=== PATIENT | female | born 1975 | race Hispanic/Latino ===

== ENCOUNTER 2018-08-15 20:56 | Emergency (ER) | payer OTHER, BC ==
[~2018-08-15] VITALS: Ht 165.1 cm; Wt 102.1 kg
--- OUTSIDE RECORDS SUMMARY | 2018-08-15 20:58 | XMS REPORT | Clinical Summary ---
Author Author [facility] Organization [facility] Address Unknown Phone Unavailable Care Team Providers Care Analytical Engineer Name Role Phone Kay Rivera MD PCP Allergies No Known Allergies Medications End Date Status Medication Sig Dispensed Refills Start Date Active aspirin (ECOTRIN) 81 MG 0 enteric coated tablet 8 Active ferrous sulfate 325 (65 Take 325 mg 0 FE) MG tablet by mouth daily with breakfast. Active multivitamin with Take 1 tablet 0 minerals tablet by mouth daily. Active fluticasone propionate 0 (FLONASE) 50 9 mcg/actuation nasal spray Active traMADol (ULTRAM) 50 mg 0 tablet 9 08/06/2019 Active candesartan (ATACAND) 8 Take 1 tablet 90 tablet 0 08/06/201 MG tablet (8 mg total) 9 by mouth daily. 08/06/2019 Active cetirizine (ZyrTEC) 10 MG Take 1 tablet 90 tablet 0 tablet (10 mg total) 9 by mouth daily. Active atorvastatin (LIPITOR) 10 Take 1 tablet 90 tablet 0 08/06/201 MG tablet (10 mg total) 9 by mouth nightly. Active glimepiride (AMARYL) 1 MG Take 1 tablet 180 tablet 0 08/06/201 tablet (1 mg total) 9 by mouth 2 (two) times a day. Active metFORMIN (GLUCOPHAGE) Take 1 tablet 180 tablet 0 1,000 mg tablet (1,000 mg 9 total) by mouth 2 (two) times a day with meals. Active metoprolol tartrate Take 1 tablet 90 tablet 0 (LOPRESSOR) 50 mg tablet (50 mg total) 9 by mouth daily. Active pantoprazole (PROTONIX) Take 1 tablet 90 tablet 0 201 40 MG EC tablet (40 mg total) 9 by mouth daily. 11/13/2017 metroNIDAZOLE (FLAGYL) Take 1 tablet 0 500 MG tablet (500 mg 8 total) by mouth every 8 (eight) hours for 4 days. 12/09/2017 acetaminophen (TYLENOL) Take 2 0 325 MG tablet tablets (650 8 mg total) by mouth every 6 (six) hours as needed for mild pain or fever for up to 30 days. 12/09/2017 ondansetron ODT Take 1 tablet 0 (ZOFRAN-ODT) 4 MG (4 mg total) 8 disintegrating tablet by mouth every 8 (eight) hours as needed for nausea or vomiting for up to 30 days. 11/23/2017 cefepime (MAXIPIME) 1 Infuse 1 g 0 gram in 50 mL Mini-Bag into a venous 8 Plus catheter every 8 (eight) hours for 14 days. 12/09/2017 heparin sodium,porcine Inject 1 mL 90 mL 0 (HEPARIN, PORCINE,) 5,000 (5,000 Units 8 unit/mL injection total) under the skin every 8 (eight) hours for 30 days. 12/09/2017 ramelteon (ROZEREM) 8 mg Take 1 tablet 0 tablet (8 mg total) 8 by mouth nightly as needed for sleep for up to 30 days. 12/09/2017 insulin lispro (HumaLOG) Inject 0-12 10 mL 100 unit/mL injection Units under 8 the skin 3 (three) times a day before meals for 30 days. 12/09/2017 insulin lispro (HumaLOG) Inject 10 10 mL 12 100 unit/mL injection Units under 8 the skin 3 (three) times a day with meals for 30 days. 11/19/2017 HYDROcodone-acetaminophen Take 1 tablet 0 (NORCO) 7.5-325 mg per by mouth 8 tablet every 4 (four) hours as needed for moderate pain for up to 10 days. Max Daily Amount: 6 tablets 12/09/2017 pantoprazole (PROTONIX) Take 1 tablet 30 tablet 0 40 MG EC tablet (40 mg total) 8 by mouth daily for 30 days. 08/06/2018 Discontinued atorvastatin (LIPITOR) 10 daily. 0 02/01/201 MG tablet 8 08/06/2018 Discontinued cetirizine HCl Take by mouth 0 (CETIRIZINE ORAL) daily. 08/06/2018 Discontinued glimepiride (AMARYL) 2 MG Take 2 mg by 0 tablet mouth daily before breakfast. 08/06/2018 Discontinued pantoprazole (PROTONIX) Take 40 mg by 0 40 MG EC tablet mouth daily. 08/06/2018 Discontinued metFORMIN (GLUCOPHAGE) Take 1,000 mg 0 1,000 mg tablet by mouth 2 (two) times a day with meals. 08/06/2018 Discontinued metoprolol tartrate Take 50 mg by 0 (LOPRESSOR) 50 mg tablet mouth daily. 08/06/2018 Discontinued losartan (COZAAR) 100 MG Take 100 mg 0 tablet by mouth daily. 08/06/2018 Discontinued acetaminophen-codeine Take 1 tablet 0 (TYLENOL WITH CODEINE #4) by mouth 300-60 mg per tablet every 4 (four) hours as needed for moderate pain. 08/06/2018 Discontinued glimepiride (AMARYL) 1 MG Take 1 mg by 0 tablet mouth 2 (two) times a day. Active Problems Problem Noted Date Necrotizing fasciitis 10/31/2017 Encounters Care Team Description Date Type Specialty Kay Rivera MD Essential hypertension (Primary Dx); Mixed hyperlipidemia; Anemia, unspecified type; Diabetes mellitus type 2 in obese (HCC); Hx of BKA, left (HCC); Encounter for completion of form with patient 08/06/2018 Office Visit Internal Medicine Bekah Vences MA 02/07/2018 Abstract Orthopedic Surgery Paul Alberts Jr., MD Aftercare following surgery (Primary Dx) 02/05/2018 Office Visit Orthopedic Surgery Elizabeth Snow FNP-C 11/03/2017 Anesthesia General Surgery Event Paul Alberts Jr., MD ABOVE THE KNEE AMPUTATION, LEFT LOWER EXTREMITY 11/03/2017 Surgery General Surgery Paul Alberts Jr., MD Four Compartment Fasciotomy, Sharp Incisional Debridement Down to Bone 11/02/2017 Surgery General Surgery Reid Howe MD 11/02/2017 Anesthesia General Surgery Event Lissa Ware CRNA 11/01/2017 Anesthesia General Surgery Event Tremayne Hamilton MD Incision And Drainage Left Leg 11/01/2017 Surgery General Surgery Tremayne Hamilton MD Incision And Drainage, debridement left foot converted to below knee amputation left foot 10/31/2017 Surgery General Surgery Staci Osborne MD 10/31/2017 Anesthesia General Surgery Event Lissa Stein DO Chandiwal, Amito, MD Zaidi, Syed Farhat, MD Necrotizing fasciitis (Primary Dx); Cellulitis of left lower extremity; Sepsis, due to unspecified organism; Uncontrolled type 2 diabetes mellitus with foot ulcer, without long-term current use of insulin; Leukocytosis, unspecified type; Fever, unspecified fever cause; Anemia, unspecified type 10/30/2017 [facility] General Internal Medicine - Encounter 11/09/2017 Reid Lopez MD 10/30/2017 Emergency Emergency Medicine after 08/14/2017 Immunizations Name Dates Previously Given Next Due INFLUENZA QUAD PF 08/06/2018 Pneumococcal 11/12/2017 Polysaccharide Family History Medical History Relation Name Comments No Known Problems Brother Diabetes Father Hypertension Father Lymphoma Maternal Grandmother Diabetes Mother Hypertension Mother No Known Problems Sister Relation Name Status Comments Brother Father Maternal Grandmother Mother Sister Social History Date Tobacco Use Types Packs/Day Years Used Never Smoker Smokeless Tobacco: Never Used Alcohol Use Drinks/Week oz/Week Comments No Alcohol Habits Answer Date Recorded How often do you have a drink containing alcohol? Never 08/06/2018 How many drinks containing alcohol do you have on Not asked a typical day when you are drinking? How often do you have six or more drinks on one Not asked occasion? Sex Assigned at Date Recorded Not on file Industry Job Start Date Occupation Not on file Not on file Not on file Travel End Travel History Travel Start No recent travel history available. Last Filed Vital Signs Time Taken Vital Sign Reading 08/06/2018 2:17 PM CDT Blood Pressure 139/88 08/06/2018 2:17 PM CDT Pulse 94 11/09/2017 12:21 PM CDT Temperature 36.3 C (97.3 F) 11/09/2017 12:21 PM CDT Respiratory Rate 16 08/06/2018 2:17 PM CDT Oxygen Saturation 97% - Inhaled Oxygen - Concentration 11/04/2017 5:00 AM CDT Weight 116 kg (255 lb 11.7 oz) 08/06/2018 2:17 PM CDT Height 165.1 cm (5' 5") 11/04/2017 5:00 AM CDT Body Mass Index 42.56 Plan of Treatment Care Team Description Date Type Specialty Kay Rivera MD [address] [address] [phone] 08/22/2018 Office Visit Internal Medicine Health Maintenance Due Date Last Done Comments DIABETIC RETINAL EYE EXAM 1977 DIABETIC FOOT EXAM 09/29/1987 CERVICAL CANCER SCREENING 1998 URINE MICROALBUMIN 08/07/2019 08/06/2018 INFLUENZA VACCINE Completed 08/06/2018 Procedures Comments Procedure Name Priority Date/Time Associated Diagnosis MICROALBUMIN / CREATININE Routine 08/06/2018 Essential hypertension URINE RATIO 3:14 PM CDT Mixed hyperlipidemia Anemia, unspecified type Diabetes mellitus type 2 in obese (HCC) Hx of BKA, left (HCC) LIPID PANEL Routine 08/06/2018 Essential hypertension 3:14 PM CDT Mixed hyperlipidemia Anemia, unspecified type Diabetes mellitus type 2 in obese (HCC) Hx of BKA, left (HCC) HEMOGLOBIN A1C Routine 08/06/2018 Essential hypertension 3:14 PM CDT Mixed hyperlipidemia Anemia, unspecified type Diabetes mellitus type 2 in obese (HCC) Hx of BKA, left (HCC) COMPREHENSIVE METABOLIC Routine 08/06/2018 Essential hypertension PANEL 3:14 PM CDT Mixed hyperlipidemia Anemia, unspecified type Diabetes mellitus type 2 in obese (HCC) Hx of BKA, left (HCC) CBC WITH PLATELET AND Routine 08/06/2018 Essential hypertension DIFFERENTIAL 3:14 PM CDT Mixed hyperlipidemia Anemia, unspecified type Diabetes mellitus type 2 in obese (HCC) Hx of BKA, left (HCC) TRANSFUSE RED BLOOD CELLS Routine 01/17/2018 5:55 PM CDT TRANSFUSE RED BLOOD CELLS Routine 01/17/2018 5:55 PM CDT POC GLUCOSE Routine 11/09/2017 11:06 AM CDT POC GLUCOSE Routine 11/09/2017 7:34 AM CDT HC COMPLETE BLD COUNT Routine 11/09/2017 W/AUTO DIFF 4:20 AM CDT POC GLUCOSE Routine 11/08/2017 8:25 PM CDT POC GLUCOSE Routine 11/08/2017 4:35 PM CDT POC GLUCOSE Routine 11/08/2017 11:40 AM CDT POC GLUCOSE Routine 11/08/2017 7:18 AM CDT POC GLUCOSE Routine 11/07/2017 8:47 PM CDT HC CATH DUAL LUMEN PICC Routine 11/07/2017 5:00 PM CDT HC US GUIDED VASCULAR Routine 11/07/2017 ACCESS 5:00 PM CDT HC CVL PICC INSERT 5 YRS Routine 11/07/2017 OR > W/O IMG GUID 5:00 PM CDT POC GLUCOSE Routine 11/07/2017 3:40 PM CDT POC GLUCOSE Routine 11/07/2017 11:43 AM CDT POC GLUCOSE Routine 11/07/2017 7:33 AM CDT ZZESTIMATED GFR Routine 11/07/2017 6:45 AM CDT COMPREHENSIVE METABOLIC Routine 11/07/2017 PANEL 6:45 AM CDT HC COMPLETE BLD COUNT Routine 11/07/2017 W/AUTO DIFF 6:45 AM CDT POC GLUCOSE Routine 11/06/2017 8:20 PM CDT POC GLUCOSE Routine 11/06/2017 4:58 PM CDT POC GLUCOSE Routine 11/06/2017 12:03 PM CDT POC GLUCOSE Routine 11/06/2017 8:06 AM CDT POC GLUCOSE Routine 11/05/2017 9:26 PM CDT POC GLUCOSE Routine 11/05/2017 5:56 PM CDT POC GLUCOSE Routine 11/05/2017 12:35 PM CDT POC GLUCOSE Routine 11/05/2017 8:16 AM CDT MAGNESIUM LEVEL Routine 11/05/2017 6:10 AM CDT ZZESTIMATED GFR Routine 11/05/2017 6:10 AM CDT BASIC METABOLIC PANEL Routine 11/05/2017 6:10 AM CDT HC COMPLETE BLD COUNT Routine 11/05/2017 W/AUTO DIFF 6:10 AM CDT POC GLUCOSE Routine 11/05/2017 12:57 AM CDT POC GLUCOSE Routine 11/04/2017 9:02 PM CDT POC GLUCOSE Routine 11/04/2017 6:14 PM CDT POC GLUCOSE Routine 11/04/2017 4:01 PM CDT POC GLUCOSE Routine 11/04/2017 11:28 AM CDT POC GLUCOSE Routine 11/04/2017 7:39 AM CDT POC GLUCOSE Routine 11/04/2017 6:31 AM CDT ZZESTIMATED GFR Routine 11/04/2017 3:00 AM CDT IONIZED CALCIUM Routine 11/04/2017 3:00 AM CDT PHOSPHORUS LEVEL Routine 11/04/2017 3:00 AM CDT BASIC METABOLIC PANEL Routine 11/04/2017 3:00 AM CDT CBC WITH PLATELET AND Routine 11/04/2017 DIFFERENTIAL 3:00 AM CDT MAGNESIUM LEVEL Routine 11/04/2017 3:00 AM CDT POC GLUCOSE Routine 11/03/2017 9:34 PM CDT POC GLUCOSE Routine 11/03/2017 4:31 PM CDT TRANSFUSE RED BLOOD CELLS Routine 11/03/2017 3:26 PM CDT SURGICAL PATHOLOGY Routine 11/03/2017 REQUEST 3:01 PM CDT TRANSFUSE RED BLOOD CELLS Routine 11/03/2017 2:42 PM CDT POC GLUCOSE Routine 11/03/2017 11:04 AM CDT ANESTHESIA PERIPHERAL Routine 11/03/2017 BLOCK 7:51 AM CDT POC GLUCOSE Routine 11/03/2017 7:50 AM CDT XR CHEST 1 VW PORTABLE Routine 11/03/2017 6:32 AM CDT POC GLUCOSE Routine 11/03/2017 6:13 AM CDT MANUAL DIFFERENTIAL Routine 11/03/2017 3:30 AM CDT ZZESTIMATED GFR Routine 11/03/2017 3:30 AM CDT IONIZED CALCIUM Routine 11/03/2017 3:30 AM CDT PHOSPHORUS LEVEL Routine 11/03/2017 3:30 AM CDT MAGNESIUM LEVEL Routine 11/03/2017 3:30 AM CDT CBC WITH PLATELET AND Routine 11/03/2017 DIFFERENTIAL 3:30 AM CDT BASIC METABOLIC PANEL Routine 11/03/2017 3:30 AM CDT POC GLUCOSE Routine 11/03/2017 2:22 AM CDT POC GLUCOSE Routine 11/03/2017 12:06 AM CDT POC GLUCOSE Routine 11/02/2017 10:56 PM CDT POC GLUCOSE Routine 11/02/2017 8:05 PM CDT POC GLUCOSE Routine 11/02/2017 6:45 PM CDT POC GLUCOSE Routine 11/02/2017 4:09 PM CDT POC GLUCOSE Routine 11/02/2017 2:40 PM CDT POC GLUCOSE Routine 11/02/2017 12:03 PM CDT URINALYSIS, AUTOMATED Routine 11/02/2017 WITH MICROSCOPY 11:26 AM CDT BETA HYDROXYBUTYRATE Routine 11/02/2017 11:26 AM CDT MANUAL DIFFERENTIAL STAT 11/02/2017 9:37 AM CDT ZZESTIMATED GFR STAT 11/02/2017 9:37 AM CDT PROTHROMBIN TIME WITH INR STAT 11/02/2017 9:37 AM CDT IONIZED CALCIUM STAT 11/02/2017 9:37 AM CDT PHOSPHORUS LEVEL STAT 11/02/2017 9:37 AM CDT MAGNESIUM LEVEL STAT 11/02/2017 9:37 AM CDT CBC WITH PLATELET AND STAT 11/02/2017 DIFFERENTIAL 9:37 AM CDT BASIC METABOLIC PANEL STAT 11/02/2017 9:37 AM CDT LACTIC ACID LEVEL STAT 11/02/2017 9:37 AM CDT POC GLUCOSE Routine 11/02/2017 8:49 AM CDT NH AN ELECTIVE Routine 11/02/2017 ENDOTRACHEAL AIRWAY 7:21 AM CDT Procedure Note - Reid Howe MD - 11/02/2017 7:21 AM CDT Airway Date/Time: 11/02/2017 7:21 AM Performed by: REID HOWE Authorized by: YANETH, REID JOEY Location: [place] Urgency: Elective Performed by: anesthesio logist Preoxygena lester with 100% O2: Yes C-spine Precaution s Maintained Throughout : Yes Mask Ventilatio n: Easy mask Final Airway Type: Endotrache al airway Final Endotrache al Airway: ETT Cuffed: Yes Technique Used: Direct laryngosco py Insertion Site: Oral Blade Type: Jimenez Laryngosco pe Blade/Vide olaryngosc ope Blade Size: 2 ETT Size (mm): 7.0 Cuff at minimum occlusion pressure: Yes Measured from: Lips ETT to Lips (cm): 22 Placement Verified by: CO2 detection, direct visualizat ion and equal breath sounds Laryngosco pic view: Grade I - full view of glottis Rapid Sequence Induction (RSI): Yes Number of Attempts at Approach: 1 XR CHEST 1 VW PORTABLE Routine 11/02/2017 6:41 AM CDT POC GLUCOSE Routine 11/02/2017 4:02 AM CDT MANUAL DIFFERENTIAL Routine 11/02/2017 3:30 AM CDT ZZESTIMATED GFR Routine 11/02/2017 3:30 AM CDT PROTHROMBIN TIME WITH INR Routine 11/02/2017 3:30 AM CDT IONIZED CALCIUM Routine 11/02/2017 3:30 AM CDT PHOSPHORUS LEVEL Routine 11/02/2017 3:30 AM CDT MAGNESIUM LEVEL Routine 11/02/2017 3:30 AM CDT BASIC METABOLIC PANEL Routine 11/02/2017 3:30 AM CDT CBC WITH PLATELET AND Routine 11/02/2017 DIFFERENTIAL 3:30 AM CDT POC GLUCOSE Routine 11/02/2017 1:54 AM CDT POC GLUCOSE Routine 11/01/2017 11:58 PM CDT POC GLUCOSE Routine 11/01/2017 10:03 PM CDT POC GLUCOSE Routine 11/01/2017 8:03 PM CDT TRANSFUSE FRESH FROZEN Routine 11/01/2017 PLASMA 6:39 PM CDT TRANSFUSE RED BLOOD CELLS STAT 11/01/2017 6:38 PM CDT POC GLUCOSE Routine 11/01/2017 6:04 PM CDT POC GLUCOSE Routine 11/01/2017 4:01 PM CDT MANUAL DIFFERENTIAL Routine 11/01/2017 4:01 PM CDT ZZESTIMATED GFR Routine 11/01/2017 4:01 PM CDT CBC WITH PLATELET AND Routine 11/01/2017 DIFFERENTIAL 4:01 PM CDT BASIC METABOLIC PANEL Routine 11/01/2017 4:01 PM CDT POC GLUCOSE Routine 11/01/2017 3:27 PM CDT NH AN ELECTIVE Routine 11/01/2017 ENDOTRACHEAL AIRWAY 2:13 PM CDT Procedure Note - Lissa Ware, [employer]PER[employer] - 11/01/2017 2:13 PM CDT Airway Performed by: LISSA WARE Authorized by: DAVE HYDE Location: OR Urgency: Elective Difficult Airway: No Anesthesio logist: DAVE HYDE Resident/C RNA/AA: LISSA WARE Performed by: resident/C RNA Preoxygena lester with 100% O2: Yes C-spine Precaution s Maintained Throughout : Yes Mask Ventilatio n: Not attempted Final Airway Type: Endotrache al airway Final Endotrache al Airway: ETT Cuffed: Yes Technique Used: Direct laryngosco py Devices/Me thods Used in Placement: Intubatin g stylet Insertion Site: Oral Blade Type: Jimenez Laryngosco pe Blade/Vide olaryngosc ope Blade Size: 2 ETT Size (mm): 7.5 Cuff at minimum occlusion pressure: Yes Measured from: Teeth ETT to Teeth (cm): 21 Placement Verified by: CO2 detection, direct visualizat ion and equal breath sounds Laryngosco pic view: Grade I - full view of glottis Rapid Sequence Induction (RSI): No Modified RSI: Yes Number of Attempts at Approach: 1 Atraumati c, lips/teeth in preop condition TRANSFUSE FRESH FROZEN Routine 11/01/2017 PLASMA 12:56 PM CDT TRANSFUSE RED BLOOD CELLS Routine 11/01/2017 12:29 PM CDT POC GLUCOSE Routine 11/01/2017 12:06 PM CDT TRANSFUSE RED BLOOD CELLS Routine 11/01/2017 11:07 AM CDT VANCOMYCIN LEVEL, TROUGH Timed 11/01/2017 10:50 AM CDT POC GLUCOSE Routine 11/01/2017 10:16 AM CDT LACTIC ACID LEVEL, SEPSIS Timed 11/01/2017 - NOW AND REPEAT 2X EVERY 10:05 AM CDT 3 HOURS POC GLUCOSE Routine 11/01/2017 7:58 AM CDT XR CHEST 1 VW PORTABLE Routine 11/01/2017 6:13 AM CDT POC GLUCOSE Routine 11/01/2017 6:03 AM CDT MANUAL DIFFERENTIAL Routine 11/01/2017 3:58 AM CDT ZZESTIMATED GFR Routine 11/01/2017 3:58 AM CDT PROTHROMBIN TIME WITH INR Routine 11/01/2017 3:58 AM CDT IONIZED CALCIUM Routine 11/01/2017 3:58 AM CDT PHOSPHORUS LEVEL Routine 11/01/2017 3:58 AM CDT MAGNESIUM LEVEL Routine 11/01/2017 3:58 AM CDT BASIC METABOLIC PANEL Routine 11/01/2017 3:58 AM CDT CBC WITH PLATELET AND Routine 11/01/2017 DIFFERENTIAL 3:58 AM CDT POC GLUCOSE Routine 11/01/2017 2:22 AM CDT POC GLUCOSE Routine 11/01/2017 12:15 AM CDT POC GLUCOSE Routine 10/31/2017 9:50 PM CDT POC GLUCOSE Routine 10/31/2017 8:04 PM CDT POC GLUCOSE Routine 10/31/2017 6:12 PM CDT POC GLUCOSE Routine 10/31/2017 4:19 PM CDT POC GLUCOSE Routine 10/31/2017 1:56 PM CDT POC GLUCOSE Routine 10/31/2017 12:37 PM CDT POC GLUCOSE Routine 10/31/2017 11:33 AM CDT ZZESTIMATED GFR Timed 10/31/2017 10:30 AM CDT BASIC METABOLIC PANEL Timed 10/31/2017 10:30 AM CDT POC GLUCOSE Routine 10/31/2017 10:29 AM CDT MANUAL DIFFERENTIAL Timed 10/31/2017 10:18 AM CDT CBC WITH PLATELET AND Timed 10/31/2017 DIFFERENTIAL 10:18 AM CDT POC GLUCOSE Routine 10/31/2017 9:26 AM CDT POC GLUCOSE Routine 10/31/2017 8:24 AM CDT POC GLUCOSE Routine 10/31/2017 7:23 AM CDT XR CHEST 1 VW PORTABLE Routine 10/31/2017 6:59 AM CDT LACTIC ACID LEVEL, SEPSIS Timed 10/31/2017 - NOW AND REPEAT 2X EVERY 6:28 AM CDT 3 HOURS MANUAL DIFFERENTIAL Timed 10/31/2017 6:15 AM CDT ZZESTIMATED GFR Timed 10/31/2017 6:15 AM CDT COMPREHENSIVE METABOLIC Timed 10/31/2017 PANEL 6:15 AM CDT TROPONIN Timed 10/31/2017 6:15 AM CDT PROTHROMBIN TIME WITH INR Timed 10/31/2017 6:15 AM CDT IONIZED CALCIUM Timed 10/31/2017 6:15 AM CDT PHOSPHORUS LEVEL Timed 10/31/2017 6:15 AM CDT MAGNESIUM LEVEL Timed 10/31/2017 6:15 AM CDT CBC WITH PLATELET AND Timed 10/31/2017 DIFFERENTIAL 6:15 AM CDT POC GLUCOSE Routine 10/31/2017 5:54 AM CDT POC GLUCOSE Routine 10/31/2017 4:36 AM CDT URINALYSIS SCREEN AND Routine 10/31/2017 MICROSCOPY, WITH REFLEX 3:55 AM CDT TO CULTURE GRAM STAIN Routine 10/31/2017 3:55 AM CDT URINE CULTURE Routine 10/31/2017 3:55 AM CDT LACTIC ACID LEVEL Routine 10/31/2017 3:50 AM CDT TRANSFUSE RED BLOOD CELLS STAT 10/31/2017 2:30 AM CDT SURGICAL PATHOLOGY Routine 10/31/2017 REQUEST 2:25 AM CDT GRAM STAIN Routine 10/31/2017 2:00 AM CDT ANAEROBIC CULTURE Routine 10/31/2017 2:00 AM CDT AEROBIC CULTURE Routine 10/31/2017 2:00 AM CDT NH AN ELECTIVE Routine 10/31/2017 ENDOTRACHEAL AIRWAY 1:40 AM CDT Procedure Note - Staci Osborne MD - 10/31/2017 1:40 AM CDT Airway Performed by: STACI OSBORNE Authorized by: DYLON, STACI Location: OR Urgency: Elective Difficult Airway: No Resident/C RNA/AA: SARAVANAN MISTRY Performed by: resident/C RNA/AA Preoxygena lester with 100% O2: Yes C-spine Precaution s Maintained Throughout : Yes Mask Ventilatio n: Not attempted Final Airway Type: Endotrache al airway Final Endotrache al Airway: ETT Technique Used: Direct laryngosco py Devices/Me thods Used in Placement: Intubatin g stylet Insertion Site: Oral Blade Type: Jimenez Laryngosco pe Blade/Vide olaryngosc ope Blade Size: 2 ETT Size (mm): 7.0 Measured from: Gums ETT to Gums (cm): 21 Placement Verified by: CO2 detection Laryngosc opic view: Grade I - full view of glottis Rapid Sequence Induction (RSI): Yes Number of Attempts at Approach: 1 ECG 12-LEAD Routine 10/31/2017 12:55 AM CDT PREPARE RBC Timed 10/31/2017 12:45 AM CDT PREPARE RBC Timed 10/31/2017 12:45 AM CDT PREPARE RBC Timed 10/31/2017 12:45 AM CDT PREPARE FRESH FROZEN Timed 10/31/2017 PLASMA 12:45 AM CDT PREPARE RBC Timed 10/31/2017 12:45 AM CDT PREPARE RBC Timed 10/31/2017 12:45 AM CDT TYPE AND SCREEN Timed 10/31/2017 12:45 AM CDT ARTERIAL BLOOD GAS STAT 10/31/2017 12:25 AM CDT XR FOOT 3+ VW LEFT STAT 10/31/2017 12:07 AM CDT XR CHEST 1 VW PORTABLE STAT 10/30/2017 11:53 PM CDT TROPONIN Timed 10/30/2017 11:42 PM CDT BLOOD SMEAR CONSULT Routine 10/30/2017 11:32 PM CDT MANUAL DIFFERENTIAL STAT 10/30/2017 11:32 PM CDT HCG QUALITATIVE, SERUM STAT 10/30/2017 SCREEN 11:32 PM CDT ZZESTIMATED GFR STAT 10/30/2017 11:32 PM CDT PROTHROMBIN TIME WITH INR STAT 10/30/2017 11:32 PM CDT COMPREHENSIVE METABOLIC STAT 10/30/2017 PANEL 11:32 PM CDT CBC WITH PLATELET AND STAT 10/30/2017 DIFFERENTIAL 11:32 PM CDT LACTIC ACID LEVEL, SEPSIS STAT 10/30/2017 - NOW AND REPEAT 2X EVERY 11:32 PM CDT 3 HOURS ECG ED PRELIMINARY Routine 10/30/2017 INTERPRETATION 11:31 PM CDT CONSULT TO SEPSIS Routine 10/30/2017 RESPONSE TEAM 11:31 PM CDT NH CRITICAL CARE, ADDL 30 Routine 10/30/2017 MIN 11:31 PM CDT NH CRITICAL CARE, E/M Routine 10/30/2017 30-74 MINUTES 11:31 PM CDT BETA HYDROXYBUTYRATE Routine 10/30/2017 11:30 PM CDT HEMOGLOBIN A1C Routine 10/30/2017 11:30 PM CDT BLOOD CULTURE, AEROBIC & Routine 10/30/2017 ANAEROBIC 11:20 PM CDT BLOOD CULTURE, AEROBIC & Routine 10/30/2017 ANAEROBIC 11:15 PM CDT POC GLUCOSE Routine 10/30/2017 10:51 PM CDT after 08/14/2017 Results * Microalbumin / creatinine urine ratio (08/06/2018 3:14 PM CDT) Creatinine, urine, random 72 20 - 275 mg/dL [facility] Microalbumin, urine 450.0 See Note: mg/dL [facility] Comment: BRADY Reference Range: Reference Range Not established Results verified by repeat analysis on dilution. Microalbumin/creatinine 6,250 (H) <30 mcg/mg creat [facility] ratio Comment: BRADY The ADA defines abnormalities in albumin excretion as follows: Category Result (mcg/mg creatinine) Normal <30 Microalbuminuria 30-299 Clinical albuminuria > UO=[id number] The ADA recommends that at least two of three specimens collected within a 3-6 month period be abnormal before considering a patient to be within a diagnostic category. Specimen Urine Resulting Agency Comment Performing Organization Information: Site ID: [id number] Name: [facility] Address: [address] [place] [phone] Director: Marisa Banks Performing Organization Address City/State/Zipcode Phone Number [employer] [place] [phone] * CBC with platelet and differential (08/06/2018 3:14 PM CDT) Only the most recent of 13 results within the time period is included. WBC 11.5 (H) 3.8 - 10.8 Thousand/uL [facility] RBC 3.91 3.80 - 5.10 Million/uL [facility] HGB 11.0 (L) 11.7 - 15.5 g/dL [facility] HCT 31.7 (L) 35.0 - 45.0 % [facility] MCV 81.1 80.0 - 100.0 fL [facility] MCH 28.1 27.0 - 33.0 pg [facility] MCHC 34.7 32.0 - 36.0 g/dL [facility] RDW 14.3 11.0 - 15.0 % [facility] Platelet count 354 140 - 400 Thousand/uL [facility] MPV 9.7 7.5 - 12.5 fL [facility] Neutrophils, absolute 6,946 1,500 - 7,800 cells/uL [facility] Lymphocytes, absolute 3,427 850 - 3,900 cells/uL [facility] Monocytes, absolute 702 200 - 950 cells/uL [facility] Eosinophils, absolute 380 15 - 500 cells/uL [facility] Basophils, absolute 46 0 - 200 cells/uL [facility] Neutrophils 60.4 % [facility] Lymphocytes 29.8 % [facility] Monocytes 6.1 % [facility] Eosinophils 3.3 % [facility] Basophils + RC 0.4 % [facility] Specimen Blood Resulting Agency Comment Performing Organization Information: Site ID: [id number] Name: [facility] Address: [address] [place] [phone] Director: Marisa Banks Performing Organization Address [facility] Cent[facility]ode Phone Number ALYSIA EMMANUEL [address] [address] * Hemoglobin A1c (08/06/2018 3:14 PM CDT) Only the most recent of 2 results within the time period is included. Hemoglobin A1C 7.3 (H) <5.7 % of total Hgb [facility] Comment: BRADY For someone without known diabetes, a hemoglobin A1c value of 6.5% or greater indicates that they may have diabetes and this should be confirmed with a follow-up test. For someone with known diabetes, a value <7% indicates that their diabetes is well controlled and a value greater than or equal to 7% indicates suboptimal control. A1c targets should be individualized based on duration of diabetes, age, comorbid conditions, and other considerations. Currently, no consensus exists regarding use of hemoglobin A1c for diagnosis of diabetes for children. Specimen Blood Resulting Agency Comment Performing Organization Information: Site ID: [id number] Name: [facility] Address: [address] [place] [id number] Director: Marisa Banks Performing Organization Address [facility]/Zipcode Phone Number ALYSIA EMMANUEL [address] [address] * Lipid panel (08/06/2018 3:14 PM CDT) Cholesterol, total 193 <200 mg/dL [facility] HDL cholesterol 48 (L) >50 mg/dL [facility] BRADY Triglycerides 194 (H) <150 mg/dL [facility] BRADY LDL cholesterol 114 (H) mg/dL (calc) [facility] calculated Comment: BRADY Reference range: <100 Desirable range <100 mg/dL for primary prevention; <70 mg/dL for patients with CHD or diabetic patients with > or=2 CHD risk factors. LDL-C is now calculated using the Dayday calculation, which is a validated novel method providing better accuracy than the Friedewald equation in the estimation of LDL-C. Jesus UMANZOR et al. DANIELLE. 2013;310(19): 4597-2445 (http://education.Ygline.com.com/faq/KAC509) Cholesterol/HDL ratio 4.0 <5.0 (calc) [facility] Non-HDL cholesterol 145 (H) <130 mg/dL (calc) [facility] [employer] Comment: BRADY For patients with diabetes plus 1 major ASCVD risk factor, treating to a non-HDL-C goal of <100 mg/dL (LDL-C of <70 mg/dL) is considered a therapeutic option. Specimen Blood Resulting Agency Comment Performing Organization Information: Site ID: [id number] Name: [facility] Address: [address] [place] [phone] Director: Marisa Banks Performing Organization Address City/State/Zipcode Phone Number [facility] [employer] [place] [phone] * Comprehensive metabolic panel (08/06/2018 3:14 PM CDT) Only the most recent of 4 results within the time period is included. Glucose 107 (H) 65 - 99 mg/dL [facility] Comment: BRADY Fasting reference interval For someone without known diabetes, a glucose value between 100 and 125 mg/dL is consistent with prediabetes and should be confirmed with a follow-up test. BUN, whole blood 16 7 - 25 mg/dL [facility] Creatinine 0.44 (L) 0.50 - 1.10 mg/dL [facility] EGFR Non-Afr. Algerian 126 > OR=60 mL/min/1.73m2 [facility] EGFR 146 > OR=60 mL/min/1.73m2 [facility] BUN/creatinine ratio 36 (H) 6 - 22 (calc) [facility] Sodium 139 135 - 146 mmol/L [employer] [facility] Potassium 4.3 3.5 - 5.3 mmol/L [employer] [facility] Chloride 104 98 - 110 mmol/L [employer] [facility] CO2 27 20 - 32 mmol/L [facility] Calcium 9.2 8.6 - 10.2 mg/dL [facility] Protein 6.7 6.1 - 8.1 g/dL [facility] Albumin, S 3.4 (L) 3.6 - 5.1 g/dL [facility] Globulin, total 3.3 1.9 - 3.7 g/dL (calc) [facility] Albumin/globulin ratio 1.0 1.0 - 2.5 (calc) [facility] Total bilirubin 0.4 0.2 - 1.2 mg/dL [facility] Alkaline phosphatase 84 33 - 115 U/L [facility] AST 12 10 - 30 U/L [facility] ALT 15 6 - 29 U/L [facility] Specimen Blood Resulting Agency Comment Performing Organization Information: Site ID: [id number] Name: [facility] Lab Address: [address] [place] [phone] Director: Marisa Banks Performing Organization Address City/State/Zipcode Phone Number [address] [address] * Transfuse RBC (01/17/2018 5:55 PM CDT) Only the most recent of 5 results within the time period is included. * POC glucose (11/09/2017 11:06 AM CDT) Only the most recent of 67 results within the time period is included. POC glucose 269 (H) 65 - 99 mg/dL [facility] Comment: PATHOLOGY AND HMW Notified RN GENOMIC MEDICINE Meter ID: [id number] Shipbuilding Draftsperson: Abran Caputo Ricardo Performing Organization Address City/[facility]/Zipcode Phone Number [place] [address] [place] [address] PATHOLOGY AND GENOMIC MEDICINE * PICC INSERTION (11/07/2017 5:00 PM CDT) Narrative Performed At Jim Retana RN 11/07/20175:24 PM PICC insertion Date/Time: 11/07/2017 5:00 PM Performed by: JIM RETANA Authorized by: NINO MOLINA Consent: Consent obtained:Written Consent given by:Patient Risks discussed: arterial puncture, incorrect placement, nerve damage, bleeding, infection, superficial thrombus and deep vein thrombus Alternatives discussed:Alternative treatment and delayed treatment Remer protocol: Procedure explained and questions answered to patient or proxy's satisfaction: yes Relevant documents present and verified: yes Test results available and properly labeled: yes Imaging studies available: yes Required blood products, implants, devices, and special equipment available: yes Site/side marked: yes Immediately prior to procedure, a time out was called: yes Patient identity confirmed:Verbally with patient, arm band and hospital-assigned identification number Pre-procedure details: Hand hygiene: Hand hygiene performed prior to insertion Sterile barrier technique: All elements of maximal sterile technique followed Skin preparation:ChloraPrep Skin preparation agent: Skin preparation agent completely dried prior to procedure Anesthesia (see MAR for exact dosages): Anesthesia method:Local infiltration Local anesthetic:Lidocaine 1% w/o epi Route of administration:Subcutaneous PICC Line Placement Details (Will create an LDA): Patient position:Flat Vessel Size (mm):3 Indication:Known remote computer terminal operator IV therapy Location:Left basilic Device Type:Non-valved Catheter size:5 Fr PICC Characteristics: Catheter Brand:Bard External Catheter Length (cm):0 Internal Catheter Length (cm):46 Total Catheter Length (cm):46 Catheter Lot Number:[id number] Catheter Expiration Date:03/14/2018 Procedure Details: Landmarks identified: yes Ultrasound guidance: yes Sterile ultrasound techniques: Sterile gel and sterile probe covers were used Number of attempts:1 Number of PICC kits used during procedure:1 Purpose of procedure:PICC Placement Successful PICC Placement: Yes Patency/Placement:Flushes without difficulty, injection cap placed, flushed with 10 mL normal saline and positive blood return PICC placed utlizing ultrasound-guided Modified Seldinger Technique: Yes Dressing/Securement:Antimicrobial dressing dry and intact, catheter securement device and antimicrobial dressing applied Blood Loss Amount:Less than 20 mL Post-Procedure Details: Post-procedure:Dressing applied Name of provider who confirmed tip placement::Jim Retana RN Patient tolerance of procedure:Tolerated well, no immediate complications Comments: PICC tip location in the SVC confirmed by 3CG/ECG technology. * Estimated GFR (11/07/2017 6:45 AM CDT) Only the most recent of 11 results within the time period is included. GFR Non Af Amer 55 (A) mL/min/1.73 m2 [facility] PATHOLOGY AND GENOMIC MEDICINE GFR Af Amer 67 mL/min/1.73 m2 [facility] Comment: PATHOLOGY AND Chronic kidney disease: <60 GENOMIC MEDICINE mL/min/1.73m2 Kidney failure: <15 mL/min/1.73m2 The estimated GFR is calculated from the IDMS-traceable Modification of Diet in Renal Disease Equation. The accuracy of the calculation is poor when the creatinine is normal. Calculated values >90 mL/min/1.73m2 are not reported. This equation has not been validated in children (<18 years), women, the elderly (>70 years), or ethnic groups other than Caucasians and Americans. Specimen Plasma specimen Performing Organization Address City/[facility] Centercode Phone Number [facility] [address] [place] [address]. [place] [address] PATHOLOGY AND [employer] [facility] * Magnesium level (11/05/2017 6:10 AM CDT) Only the most recent of 7 results within the time period is included. Magnesium 2.1 1.7 - 2.4 mg/dL [facility] PATHOLOGY AND [employer] [facility] Specimen Plasma specimen Performing Organization Address [facility] [place] Phone Number [facility] [address] [place] [address] PATHOLOGY AND [employer] [facility] * Basic metabolic panel (11/05/2017 6:10 AM CDT) Only the most recent of 8 results within the time period is included. Sodium 135 135 - 148 mEq/L [facility] OF PATHOLOGY AND GENOMIC [facility] Potassium 3.9 3.5 - 5.0 mEq/L [facility] OF PATHOLOGY AND GENOMIC MEDICINE Chloride 105 99 - 109 mEq/L [facility] OF PATHOLOGY AND GENOMIC MEDICINE CO2 17 (L) 24 - 31 mEq/L [facility] OF PATHOLOGY AND [employer] MEDICINE Anion gap 13@ANIO 7 - 15 mEq/L [facility] OF PATHOLOGY AND GENOMIC MEDICINE BUN 39 (H) 8 - 24 mg/dL [facility] OF PATHOLOGY AND GENOMIC [facility] Creatinine 1.5 0.5 - 1.5 mg/dL [facility] OF PATHOLOGY AND GENOMIC [facility] Glucose 190 (H) 65 - 99 mg/dL [facility] OF PATHOLOGY AND [employer] [facility] Calcium 7.9 (L) 8.6 - 10.6 mg/dL [facility] PATHOLOGY AND [employer] MEDICINE Specimen Plasma specimen Performing Organization Address [facility] [place] Phone Number [facility] [address] [place] [address] PATHOLOGY AND [employer] [facility] * Phosphorus level (11/04/2017 3:00 AM CDT) Only the most recent of 6 results within the time period is included. Phosphorus 5.1 (H) 2.5 - 4.8 mg/dL [facility] PATHOLOGY AND [employer] [facility] Specimen Plasma specimen Performing Organization Address [facility] [place] [address] PATHOLOGY AND GENOMIC MEDICINE * Ionized calcium (11/04/2017 3:00 AM CDT) Only the most recent of 6 results within the time period is included. pH 7.42 [facility] PATHOLOGY AND GENOMIC MEDICINE Ionized calcium 1.02 (L) 1.11 - 1.32 mmol/L [facility] PATHOLOGY AND GENOMIC MEDICINE Specimen Plasma specimen Performing Organization Address City/[facility] Centercode Phone Number [facility] [place] [address] [place] [address] PATHOLOGY AND GENOMIC MEDICINE * Surgical pathology request (11/03/2017 3:01 PM CDT) Only the most recent of 2 results within the time period is included. [facility] PATHOLOGY AND GENOMIC MEDICINE Surgical pathology report See link below for PDF Lab [facility] Report PATHOLOGY AND GENOMIC MEDICINE Result status This is Final Report to [facility] OF [id number] PATHOLOGY AND GENOMIC MEDICINE Performing Organization Address City/[facility] Centercode Phone Number [facility] [place] [address] [place] [address] PATHOLOGY AND GENOMIC MEDICINE * ANESTHESIA PERIPHERAL BLOCK (11/03/2017 7:51 AM CDT) Narrative Performed At MANUEL Duenas 11/03/20178:45 AM Peripheral Block Performed by: ELIZABETH SNOW Authorized by: ELIZABETH SNOW Patient Location:ICU Start Time:11/03/2017 8:23 AM End Time:11/03/2017 8:35 AM Staff: Anesthesiologist:RADAMES CINTRON Preprocedure: patient identified, IV checked, site and side verified, risks and benefits discussed, procedure verified, surgical consent complete, patient position confirmed, monitors and equipment checked, pre-op evaluation complete and site marked Time Out Performed:11/03/2017 8:35 AM Peripheral Nerve Block: Patient Position:Supine Prep: ChloraPrep Monitoring:Blood pressure monitoring, continuous pulse oximetry and heart rate Block Type:Femoral Laterality:Left Injection Technique:Single injection Procedures: ultrasound guided Ultrasound documentation:Images saved on portable media Local Infiltration (See MAR for details):Ropivacaine Needle: Needle Type:Pajunk Needle gauge: 21G 100MM. Assessment: Injection Assessment:Visualized needle/local anesthetic surrounding nerve, needle tip visualized at all times during injection of medication, no symptoms of intraneural/intravenous injection, visualized pertinent vascular structures and nerves and intermittent aspiration during local anesthetic administration Paresthesia Pain:Immediately resolved Heart Rate Change: No Slow Fractionated Injection: No Block outcome:No apparent complications, patient comfortable and patient tolerated procedure well Catheter removed: block catheter removed with tip intact Notes: Negative Aspiration before and after catheter insertion to Left Femoral * XR Chest 1 Vw Portable (11/03/2017 6:32 AM CDT) Only the most recent of 5 results within the time period is included. Narrative Performed At EXAMINATION:XR CHEST 1 VW PORTABLE [facility] CLINICAL HISTORY: 42 years Female Shoulder painbursitis or tenosynovitis suspectedxray nondiagnostic [facility] COMPARISON:Most recent prior at [facility] IMPRESSION: 1.Cardiomediastinal silhouette is stable. There is central vascular congestion. 2.The lungs are hypoinflated. There is some increased density in the left base consistent with atelectasis and/or mild consolidation. More mild atelectasis in the right lung base. No large effusion. No pneumothorax. [facility]-[id number] Procedure Note Interface, Radiology Results Incoming - 11/03/2017 10:00 AM CDT EXAMINATION: XR CHEST 1 VW PORTABLE CLINICAL HISTORY: 42 years Female Shoulder pain bursitis or tenosynovitis suspected xray nondiagnostic [facility] COMPARISON: Most recent prior at [facility] IMPRESSION: 1. Cardiomediastinal silhouette is stable. There is central vascular congestion. 2. The lungs are hypoinflated. There is some increased density in the left base consistent with atelectasis and/or mild consolidation. More mild atelectasis in the right lung base. No large effusion. No pneumothorax. [facility]-[id number] Performing Organization Address City/State/Zipcode Phone Number [facility] [address] [place] [address] * Manual differential (11/03/2017 3:30 AM CDT) Only the most recent of 8 results within the time period is included. Manual differential PERFORMED [facility] PATHOLOGY AND GENOMIC MEDICINE Neutrophils 85.0 (H) 39.0 - 69.0 % [facility] PATHOLOGY AND GENOMIC MEDICINE Lymphocytes 10.0 (L) 25.0 - 45.0 % [facility] PATHOLOGY AND GENOMIC MEDICINE Monocytes 4.0 0.0 - 10.0 % [facility] PATHOLOGY AND GENOMIC MEDICINE Eosinophils 1.0 0.0 - 5.0 % [facility] PATHOLOGY AND GENOMIC MEDICINE Basophils 0.0 0.0 - 1.0 % [facility] PATHOLOGY AND GENOMIC MEDICINE Metamyelocytes 0 % [facility] PATHOLOGY AND GENOMIC MEDICINE Promyelocytes 0 % [facility] PATHOLOGY AND GENOMIC MEDICINE Reactive lymphocytes Few [facility] PATHOLOGY AND GENOMIC MEDICINE Platelet slide review Leon adequateComment: Platelet [facility] OF aggregates present. PATHOLOGY AND GENOMIC MEDICINE Anisocytosis Moderate [facility] PATHOLOGY AND GENOMIC MEDICINE Polychromasia Moderate [facility] PATHOLOGY AND GENOMIC MEDICINE Ovalocytes Moderate [facility] PATHOLOGY AND GENOMIC MEDICINE Performing Organization Address City/State/Zipcode [place] Number [place] [address] [place] [address] PATHOLOGY AND GENOMIC MEDICINE * Beta hydroxybutyrate (11/02/2017 11:26 AM CDT) Only the most recent of 2 results within the time period is included. Beta hydroxybutyrate 0.46 (H) 0.02 - 0.27 mmol/L [facility] DEPARTMENT OF PATHOLOGY AND GENOMIC MEDICINE Specimen Serum Performing Organization Address City/State/Zipcode Phone Number [facility] DEPARTMENT OF [address] [place] [address] PATHOLOGY AND GENOMIC MEDICINE * Urinalysis, automated with microscopy (11/02/2017 11:26 AM CDT) Color, UA Yellow [facility] OF PATHOLOGY AND GENOMIC MEDICINE Appearance, UA Hazy [facility] OF PATHOLOGY AND GENOMIC MEDICINE Specific gravity, UA 1.010 1.001 - 1.035 [facility] PATHOLOGY AND GENOMIC MEDICINE pH, UA 5.0 5.0 - 8.5 [facility] PATHOLOGY AND GENOMIC MEDICINE Protein, UA Negative Negative [facility] PATHOLOGY AND GENOMIC MEDICINE Glucose, UA Negative Negative [facility] PATHOLOGY AND GENOMIC MEDICINE Ketones, UA Negative Negative [facility] PATHOLOGY AND GENOMIC MEDICINE Bilirubin, UA Negative Negative [facility] PATHOLOGY AND GENOMIC MEDICINE Blood, UA Moderate (A) Negative [facility] PATHOLOGY AND GENOMIC MEDICINE Nitrite, UA Negative Negative [facility] PATHOLOGY AND GENOMIC MEDICINE Urobilinogen, UA <2.0 <2.0 [facility] PATHOLOGY AND GENOMIC MEDICINE Leukocyte esterase, UA Negative Negative [facility] OF PATHOLOGY AND GENOMIC MEDICINE Epithelial cells, UA <1 /HPF [facility] OF PATHOLOGY AND GENOMIC MEDICINE WBC, UA 5 (H) 0 - 4 /HPF [facility] PATHOLOGY AND GENOMIC MEDICINE RBC, UA 16 (H) 0 - 5 /HPF [facility] PATHOLOGY AND GENOMIC MEDICINE Bacteria, UA None seen None seen [facility] PATHOLOGY AND GENOMIC MEDICINE Yeast, UA Few (A) [facility] PATHOLOGY AND GENOMIC MEDICINE Yeast with pseudohyphae, None seen [facility] PATHOLOGY AND GENOMIC MEDICINE Specimen Urine Performing Organization Address City/[facility]/Zipcode Phone Number [facility] [address] PATHOLOGY AND GENOMIC MEDICINE * Prothrombin time with INR (11/02/2017 9:37 AM CDT) Only the most recent of 5 results within the time period is included. Prothrombin time 18.2 (H) 12.0 - 15.0 sec [facility] OF PATHOLOGY AND GENOMIC MEDICINE INR 1.5 [facility] OF Comment: PATHOLOGY AND The International Normalized GENOMIC MEDICINE Ratio (INR) is a therapeutic monitoring tool for patients who are stable on oral anticoagulant therapy. An INR of 2.0-3.0 is suggested for deep vein thrombosis/pulmonary embolism. Specimen Blood Performing Organization Address City/[facility]/Zipcode Phone Number [place] [address] [place] [address] PATHOLOGY AND GENOMIC MEDICINE * Lactic acid level (11/02/2017 9:37 AM CDT) Only the most recent of 2 results within the time period is included. Lactic acid 1.0 0.5 - 2.2 mmol/L [facility] OF PATHOLOGY AND GENOMIC MEDICINE Specimen Blood Performing Organization Address [facility]/Zipcode Phone Number [facility] [place] [address] [place] [address] PATHOLOGY AND GENOMIC MEDICINE * Transfuse fresh frozen plasma (11/01/2017 6:39 PM CDT) Only the most recent of 3 results within the time period is included. * Vancomycin level, trough (11/01/2017 10:50 AM CDT) Vancomycin, trough 30.1 (HH) ug/mL [facility] OF Comment: PATHOLOGY AND Therapeutic Ranges: GENOMIC MEDICINE Peak30.0 - 40.0 ug/mL Zsioqy40.0 - 20.0 ug/mL Results called to and read back by _Krystyna Parker RN in ICU (name/location) at11/01/201712:02 (date/time) by __GRETEL. Specimen Blood Performing Organization Address City/[facility]/Zipcode Phone Number [facility] [address] [place] [address] PATHOLOGY AND GENOMIC MEDICINE * Lactic acid level, SEPSIS - Now and repeat 2x every 3 hours (11/01/2017 10:05 AM CDT) Only the most recent of 3 results within the time period is included. Lactic acid 1.0 0.5 - 2.2 mmol/L [facility] OF PATHOLOGY AND GENOMIC MEDICINE Specimen Blood Performing Organization Address City/State/Zipcode Phone Number [facility] [place] [address] [place] [address] PATHOLOGY AND GENOMIC MEDICINE * Troponin (10/31/2017 6:15 AM CDT) Only the most recent of 2 results within the time period is included. Troponin <0.10 0.00 - 0.10 ng/mL [facility] OF Comment: PATHOLOGY AND 0.11 - 1.49 GENOMIC MEDICINE ng/mlMay indicate increased risk of acute coronary syndrome. >=1.5 ng/ml Consistent with acute myocardial infarction. The diagnostic value of a single normal or non-diagnostic result is questionable.Serial samples at 2-6 hour intervals are required to rule out acute myocardial injury. Specimen Plasma specimen Performing Organization Address City/[facility] Cent[facility]ode Phone Number [facility] [place] [address] [place] [address] PATHOLOGY AND GENOMIC MEDICINE * Urinalysis screen and microscopy, with reflex to culture (10/31/2017 3:55 AM CDT) Specimen site Clean catch [facility] OF PATHOLOGY AND GENOMIC MEDICINE Color, UA Yellow [facility] OF PATHOLOGY AND GENOMIC MEDICINE Appearance, UA Hazy [facility] OF PATHOLOGY AND GENOMIC MEDICINE Specific gravity, UA 1.017 1.001 - 1.035 [facility] OF PATHOLOGY AND GENOMIC MEDICINE pH, UA 5.0 5.0 - 8.5 [facility] PATHOLOGY AND GENOMIC MEDICINE Protein, UA 1+ (A) Negative [facility] OF PATHOLOGY AND GENOMIC MEDICINE Glucose, UA 3+ (A) Negative [facility] OF PATHOLOGY AND GENOMIC MEDICINE Ketones, UA Trace (A) Negative [facility] OF PATHOLOGY AND GENOMIC MEDICINE Bilirubin, UA Negative Negative [facility] OF PATHOLOGY AND GENOMIC MEDICINE Blood, UA Small (A) Negative [facility] OF PATHOLOGY AND GENOMIC MEDICINE Nitrite, UA Negative Negative [facility] OF PATHOLOGY AND GENOMIC MEDICINE Urobilinogen, UA 4.0 (A) <2.0 [facility] OF PATHOLOGY AND GENOMIC MEDICINE Leukocyte esterase, UA Negative Negative [facility] OF PATHOLOGY AND GENOMIC MEDICINE Epithelial cells, UA <1 /HPF [facility] OF PATHOLOGY AND GENOMIC MEDICINE WBC, UA 5 (H) 0 - 4 /HPF [facility] OF PATHOLOGY AND GENOMIC MEDICINE RBC, UA 1 0 - 5 /HPF [facility] OF PATHOLOGY AND GENOMIC MEDICINE Bacteria, UA Few None seen [facility] OF PATHOLOGY AND GENOMIC MEDICINE Yeast, UA None seen [facility] PATHOLOGY AND GENOMIC MEDICINE Yeast with pseudohyphae, None [facility] [facility] PATHOLOGY AND GENOMIC MEDICINE Specimen Urine Performing Organization Address City/[facility]/Zipcode Phone Number [place] [address] [place] [address] PATHOLOGY AND GENOMIC MEDICINE * Gram stain (10/31/2017 3:55 AM CDT) Only the most recent of 2 results within the time period is included. Gram stain result No WBC's or organisms seen. [facility] DEPARTMENT OF Comment: PATHOLOGY AND Specimen Information GENOMIC MEDICINE Specimen Source: Urine Specimen Site: Clean catch Specimen Urine Performing Organization Address City/[facility]/Zipcode Phone Number [facility] DEPARTMENT OF [address] [place] [address] PATHOLOGY AND GENOMIC MEDICINE * Urine culture (10/31/2017 3:55 AM CDT) Urine culture isolate No growth after 1 day. [facility] DEPARTMENT OF Comment: PATHOLOGY AND Specimen Information GENOMIC MEDICINE Specimen Source: Urine Specimen Site: Clean catch Specimen Urine Performing Organization Address City/[facility] Phone Number [facility] DEPARTMENT OF [address] [place] [address] PATHOLOGY AND GENOMIC MEDICINE * Aerobic culture (10/31/2017 2:00 AM CDT) Aerobic culture isolate Serratia marcescens [facility] DEPARTMENT OF Few PATHOLOGY AND , GENOMIC MEDICINE identification/susceptibility to follow (A) Comment: Specimen Information Specimen Source: Incision Specimen Site: Foot, left Aerobic culture isolate Streptococcus group B [facility] DEPARTMENT OF Moderate PATHOLOGY AND grouping to follow GENOMIC MEDICINE (A) Aerobic culture isolate Enterococcus faecalis [facility] DEPARTMENT OF Moderate PATHOLOGY AND Enterococcus susceptible to GENOMIC MEDICINE high levels of Gentamicin. Susceptibility results indicate synergy with Penicillins and Vancomycin. This organism is Vancomycin Sensitive. (A) Specimen Incision - Foot, left Antibiotic Method Susceptibility Organism Ampicillin PARUL >16 mcg/mL: Resistant Serratia marcescens Amoxicillin/Clavulanate PARUL >16/8 mcg/mL: Resistant Serratia marcescens Amikacin PARUL <=4 mcg/mL: Susceptible Serratia marcescens Aztreonam PARUL <=1 mcg/mL: Susceptible Serratia marcescens Ceftazidime PARUL <=0.5 mcg/mL: Susceptible Serratia marcescens Ciprofloxacin PARUL <=0.5 mcg/mL: Susceptible Serratia marcescens Ceftriaxone PARUL <=0.5 mcg/mL: Susceptible Serratia marcescens Cefuroxime Sodium PARUL >16 mcg/mL: Resistant Serratia marcescens Cefazolin PARUL >32 mcg/mL: Resistant Serratia marcescens Cefepime PARUL <=0.5 mcg/mL: Susceptible Serratia marcescens Cefoxitin PARUL >16 mcg/mL: Resistant Serratia marcescens Gentamicin PARUL 2 mcg/mL: Susceptible Serratia marcescens Imipenem PARUL 1 mcg/mL: Susceptible Serratia marcescens Levofloxacin PARUL <=1 mcg/mL: Susceptible Serratia marcescens Meropenem PRAUL <=0.125 mcg/mL: Susceptible Serratia marcescens Tobramycin PARUL 2 mcg/mL: Susceptible Serratia marcescens Ampicillin/Sulbactam PARUL >16/8 mcg/mL: Resistant Serratia marcescens Tetracycline PARUL >8 mcg/mL: Resistant Serratia marcescens Piperacillin/Tazobactam PARUL 8/4 mcg/mL: Susceptible Serratia marcescens Ertapenem PARUL <=0.125 mcg/mL: Susceptible Serratia marcescens Tigecycline PARUL 2 mcg/mL: Susceptible Serratia marcescens Trimethoprim/Sulfamethoxazole PARUL <=0.5/9.5 mcg/mL: Susceptible Serratia marcescens Ampicillin PARUL 1 mcg/mL: Susceptible Enterococcus faecalis Erythromycin PARUL <=0.5 mcg/mL: Susceptible Enterococcus faecalis Gentamicin-Syn PARUL <=500 mcg/mL: Susceptible Enterococcus faecalis Linezolid PARUL <=1 mcg/mL: Susceptible Enterococcus faecalis Minocycline PARUL 8 mcg/mL: Resistant Enterococcus faecalis Vancomycin PARUL 1 mcg/mL: Susceptible Enterococcus faecalis Performing Organization Address City/[facility] Phone Number [facility] DEPARTMENT OF [address] [place] [address] PATHOLOGY AND GENOMIC MEDICINE * Anaerobic culture (10/31/2017 2:00 AM CDT) Anaerobic culture isolate Bacteroides nordii [facility] DEPARTMENT OF , beta lactamase positive PATHOLOGY AND (A) GENOMIC MEDICINE Comment: Specimen Information Specimen Source: Incision Specimen Site: Foot, left Specimen Incision - Foot, left Performing Organization Address City/[facility] Phone Number [facility] DEPARTMENT OF [address] [place] [phone] PATHOLOGY AND GENOMIC MEDICINE * ECG 12 lead (10/31/2017 12:55 AM CDT) Ventricular rate 138 [facility] Atrial rate 138 [facility] NH interval 120 [facility] QRSD interval 84 [facility] QT interval 300 [facility] QTC interval 454 [facility] P axis 1 56 [facility] QRS axis 1 16 [facility] T wave axis 57 [facility] EKG impression Sinus tachycardia-Otherwise [facility] MUSE normal ECG-No previous ECGs available- Performing Organization Address City/State/Zipcode Phone Number [facility] MUSE [address] [place] [address] * Prepare fresh frozen plasma, 2 Units (10/31/2017 12:45 AM CDT) Product name Plasma frz w/in 24hrs thaw [facility] DEPARTMENT OF PATHOLOGY AND GENOMIC MEDICINE Unit number [id number] [facility] DEPARTMENT OF PATHOLOGY AND GENOMIC MEDICINE Product code [id number] [facility] DEPARTMENT OF PATHOLOGY AND GENOMIC MEDICINE Dispense status Transfused [facility] DE[facility]MENT OF PATHOLOGY AND GENOMIC MEDICINE Blood expiration date [facility] DEPARTMENT OF PATHOLOGY AND GENOMIC MEDICINE Blood type code 7300 [facility] OF PATHOLOGY AND GENOMIC MEDICINE Blood type B POSITIVE [facility] DEPARTMENT OF PATHOLOGY AND GENOMIC MEDICINE Product name Plasma frz w/in 24hrs thaw [facility] DEPARTMENT OF PATHOLOGY AND GENOMIC MEDICINE Unit number [id number] [facility] DEPARTMENT OF PATHOLOGY AND GENOMIC MEDICINE Product code [id number] [facility] DEPARTMENT OF PATHOLOGY AND GENOMIC MEDICINE Dispense status Transfused [facility] DEPARTMENT OF PATHOLOGY AND GENOMIC MEDICINE Blood expiration date [facility] DEPARTMENT OF PATHOLOGY AND GENOMIC MEDICINE Blood type code 7300 [facility] DEPARTMENT OF PATHOLOGY AND GENOMIC MEDICINE Blood type B POSITIVE [facility] DEPARTMENT OF PATHOLOGY AND GENOMIC MEDICINE Specimen Blood Performing Organization Address City/State/Zipcode Phone Number [facility] [place] [address]. [place] [phone] PATHOLOGY AND GENOMIC MEDICINE * Prepare RBC, 2 Units (10/31/2017 12:45 AM CDT) Only the most recent of 5 results within the time period is included. Product name Red Blood Cells -1, Leukored [facility] DEPARTMENT OF PATHOLOGY AND GENOMIC MEDICINE Unit number [id number] [facility] DEPARTMENT OF PATHOLOGY AND GENOMIC MEDICINE Product code [id number] [facility] DEPARTMENT OF PATHOLOGY AND GENOMIC MEDICINE Dispense status Transfused [facility] DEPARTMENT OF PATHOLOGY AND GENOMIC MEDICINE Blood expiration date [facility] DEPARTMENT OF PATHOLOGY AND GENOMIC MEDICINE Blood type code 1700 [facility] DEPARTMENT OF PATHOLOGY AND GENOMIC MEDICINE Blood type B NEGATIVE [facility] DEPARTMENT OF PATHOLOGY AND GENOMIC MEDICINE Product name Red Blood Cells -1, Leukored [facility] DEPARTMENT OF PATHOLOGY AND GENOMIC MEDICINE Unit number [id number] [facility] DEPARTMENT OF PATHOLOGY AND GENOMIC MEDICINE Product code [id number] [facility] DEPARTMENT OF PATHOLOGY AND GENOMIC MEDICINE Dispense status Transfused [facility] DEPARTMENT OF PATHOLOGY AND GENOMIC MEDICINE Blood expiration date [facility] DEPARTMENT OF PATHOLOGY AND GENOMIC MEDICINE Blood type code 1700 [facility] DE[facility]MENT PATHOLOGY AND GENOMIC MEDICINE Blood type B NEGATIVE [facility] DEPARTMENT OF PATHOLOGY AND GENOMIC MEDICINE Performing Organization Address City/[facility] Cent[facility]ode Phone Number [address] [employer] [place] [address] PATHOLOGY AND GENOMIC MEDICINE * Type and screen (10/31/2017 12:45 AM CDT) ABO grouping B [facility] DEPARTMENT OF PATHOLOGY AND GENOMIC MEDICINE Rh type POS [facility] DEPARTMENT OF PATHOLOGY AND GENOMIC MEDICINE Antibody screen (gel) NEG [facility] DEPARTMENT PATHOLOGY AND GENOMIC MEDICINE Specimen Blood Performing Organization Address City/[facility] Centercode Phone Number [place] [address] [address] PATHOLOGY AND [facility] MEDICINE * Arterial blood gas (10/31/2017 12:25 AM CDT) pH, arterial 7.48 (H)Comment: 21% 7.35 - 7.45 [facility] DEPARTMENT OF PATHOLOGY AND GENOMIC MEDICINE pCO2, arterial 31 (L) 35 - 45 mmHg [facility] DEPARTMENT OF PATHOLOGY AND GENOMIC MEDICINE pO2, arterial 75 (L) 80 - 90 mmHg [facility] DEPARTMENT OF PATHOLOGY AND GENOMIC MEDICINE Bicarbonate, arterial 22.6 21.0 - 28.0 mmol/L [facility] DEPARTMENT PATHOLOGY AND GENOMIC MEDICINE Base excess, arterial 0 -2 - 2 mEq/L [facility] DEPARTMENT OF PATHOLOGY AND GENOMIC MEDICINE O2 saturation, arterial 97 95 - 100 % [facility] DEPARTMENT PATHOLOGY AND GENOMIC MEDICINE Specimen Blood Performing Organization Address City/[facility] Cent[facility]ode Phone Number [place] [address] [address] [facility] [place] [address] PATHOLOGY AND [facility] MEDICINE * XR Foot 3+ Vw Left (10/31/2017 12:07 AM CDT) Narrative Performed At XR FOOT 3VW LEFT [facility] CLINICAL INDICATION:foot infection COMPARISON:None. IMPRESSION: There is soft tissue swelling and soft tissue gas within the ankle, midfoot, and forefoot, concerning for a necrotizing infection. There is no osseous destruction or aggressive periostitis to suggest acute osteomyelitis. There is no acute fracture or dislocation. [facility]-[id number] Procedure Note Hm Interface, Radiology Results Incoming - 10/31/2017 12:20 AM CDT XR FOOT 3 VW LEFT CLINICAL INDICATION: foot infection COMPARISON: None. IMPRESSION: There is soft tissue swelling and soft tissue gas within the ankle, midfoot, and forefoot, concerning for a necrotizing infection. There is no osseous destruction or aggressive periostitis to suggest acute osteomyelitis. There is no acute fracture or dislocation. [facility]-[id number] Performing Organization Address City/State/Zipcode Phone Number [facility] [address] [place] [address] * Blood smear consult (10/30/2017 11:32 PM CDT) Blood smear consult Footnote [facility] DEPARTMENT OF Comment: PATHOLOGY AND Smears were reviewed by GENOMIC MEDICINE , Neutrophilia with left shift. Consider sepsis. No Malignant cells seen. 10/31/201709:58 MT Performing Organization Address [facility] Centercode Phone [place] [address] [address] [place] [address] PATHOLOGY AND GENOMIC MEDICINE * hCG qualitative, serum screen (10/30/2017 11:32 PM CDT) hCG qualitative, serum NegativeComment: Sensitivity [facility] DEPARTMENT of HCG test: 25 mIU/mL PATHOLOGY AND GENOMIC MEDICINE Specimen Blood Performing Organization Address [facility] Centercode Phone [place] [address] [place] [address] PATHOLOGY AND GENOMIC MEDICINE * ECG ED Preliminary Interpretation - NOT AN ORDER (10/30/2017 11:31 PM CDT) Narrative Performed At Lissa Stein DO 11/11/2017 12:27 AM ECG ED Preliminary Interpretation - Not an Order Performed by: LISSA STEIN Authorized by: LISSA STEIN ECG reviewed by ED Physician in the absence of a bulk pigment reducer: yes Interpretation: Interpretation: abnormal Quality: Tracing quality:Limited by artifact Rate: ECG rate:138 ECG rate assessment: tachycardic Rhythm: Rhythm: sinus tachycardia Ectopy: Ectopy: none QRS: QRS axis:Normal QRS intervals:Normal Conduction: Conduction: normal ST segments: ST segments:Normal T waves: T waves: normal * Consult to Sepsis Response Team (10/30/2017 11:31 PM CDT) Narrative Performed At Lissa Stein DO 11/11/2017 12:27 AM Consult to Sepsis Response Team Performed by: LISSA STEIN Authorized by: LISSA STEIN Sepsis Clinical Assessment General Assessment Information Current sepsis score:4 On comfort care?: No If score does not worsen, snooze alerts until:10/31/2017 02:00 CDT SIRS Criteria Heart rate > 90 bpm due to acute condition Respirations > 20/min due to acute condition WBC > 12 K/mcL due to acute condition Sepsis Assessment Clinical suspicion of infection? Yes Time of suspicion of infection:10/30/2017 11:30 PM Clinical suspicion of sepsis?: Yes Sepsis staging:Septic shock Septic Shock T0:10/30/2017 11:45 PM Sepsis protocol started?Yes Where did the protocol start?:ED Started Suspected Type/Source of Infection Suspected Type of Infection: Bacterial Suspected Source of Infection: Skin/soft tissue infection Focus Exam Sepsis focus exam performed at 10/31/2017 12:20 AM Cardiopulmonary Exam Heart: Tachycardia Left Lung: Clear Right Lung: Clear Capillary Refill Capillary refill rate: Brisk, < 3 s Peripheral Pulses Left dorsalis pedis:Normal Right dorsalis pedis:Normal Left posterial tibial: Normal Right posterial tibial:Normal Left radial:Normal Right radial:Normal Skin Exam Skin exam: Skin color normal Sepsis Related Vitals Heart rate: 129 Temperature: (!) 100.8 F Respiratory rate: 18 Blood pressure: 137/63 Altered mental status: No results found for: WBC Weight-Based Fluid Bolus Calculation The recommended weight-based bolus volume: 3,330 mL (dosing weight) Please refer to the MAR for actual med/fluid administrations. * CRITICAL CARE (10/30/2017 11:31 PM CDT) Narrative Performed At Lissa Stein DO 11/11/2017 12:27 AM Critical Care Performed by: LISSA STEIN Authorized by: LISSA STEIN Critical care provider statement: Critical care time (minutes):90 Critical care time was exclusive of:Separately billable procedures and treating other patients and teaching time Critical care was necessary to treat or prevent imminent or life-threatening deterioration of the following conditions:Cardiac failure, circulatory failure, [employer] failure or compromise, dehydration, renal failure, respiratory failure, sepsis, metabolic crisis, endocrine crisis and shock Critical care was time spent personally by me on the following activities:Development of treatment plan with patient or surrogate, discussions with consultants, evaluation of patient's response to treatment, examination of patient, interpretation of cardiac output measurements, obtaining history from patient or surrogate, ordering and performing treatments and interventions, ordering and review of laboratory studies, ordering and review of radiographic studies, pulse oximetry, re-evaluation of patient's condition and review of old charts Dave 'yes' if you are taking over critical care for this patient from another provider.: no * Blood culture, aerobic & anaerobic (10/30/2017 11:20 PM CDT) Only the most recent of 2 results within the time period is included. Blood culture isolate No growth after 5 days of [facility] DEPARTMENT OF incubation. PATHOLOGY AND Comment: GENOMIC MEDICINE Specimen Information Specimen Source: Blood Specimen Site: Hand, digit left Specimen Blood - Hand, digit left Performing Organization Address City/State/Zipcode Phone Number [facility] DEPARTMENT OF [address] [place] [address] PATHOLOGY AND GENOMIC MEDICINE after 08/14/2017 Insurance Payer Benefit Subscriber ID Type Phone Address Plan / Group BCBS BCBS xxxxxxxxxxxx PPO CHOICE PPO/CARLEY ESTEVEZ PPO Advance Directives Patient has advance care planning documents on file. For more information, tanya sawyer contact: Rinaldi Uatsdin [address] [place] [phone]
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
[2018-08-15 23:50] VITALS: BP 159/90
== END 2018-08-16 00:14 | disposition home or self-care (01) ==
LOC: FSED 20:56
DX: M54.2 Cervicalgia (principal); M54.5 Low back pain; S13.4XXA Sprain of ligaments of cervical spine, initial encounter; S33.5XXA Sprain of ligaments of lumbar spine, initial encounter; V43.62XA Car passenger injured in collision with other type car in traffic accident, initial encounter
CPT/HCPCS: 72040; 72100; 99283